=== PATIENT | male | born 1955 | race African-American/Black ===

== ENCOUNTER → 2016-10-12 | Outpatient (CLI) | payer OTHER ==
--- NOTE | ~2016-10-12 | MR165 ---
[facility] A Service of [facility] & [facility] RADIOLOGY TEXT RESULTS PATIENT: FELY KIRKLAND LOCATION: [facility] : 53 UNIT #: [id number] AGE: [address]: Racheal Conner MD SEX: M ORDER DR: [id number] [address] [id number] MR#: [id number] Acc #: [id number] NAME: FELY KIRKLAND : 1955 SEX: M STUDY DATE/TIME: 10/12/2016 16:29 UNIT: [facility] ROOM: STUDY DESCRIPTION: MR Shoulder Wo Contrast Rt Attending Physician: Racheal Conner M.D. Referring Physician: Racheal Conner M.D. Ordering Physician: Racheal Conner M.D. Primary Care Physician: Racheal Conner M.D. MRI CENTER REPORT This report is preliminary unless electronic signature is present. EXAM MRI of the right shoulder, 10/12/2016 COMPARISON No correlative studies. HISTORY Order states cervical radiculopathy, numbness of upper extremity. History sheet states right shoulder/right upper extremity numbness with limited range of motion for 3 weeks. No known injury and no shoulder surgery. FINDINGS There is moderate hypertrophic AC joint arthrosis with capsuloligamentous thickening and osteophyte formation. Coracoacromial and coracoclavicular ligaments are intact. There is moderate diffuse supraspinatus tendinosis with anterior insertional footprint supraspinatus tendon fraying and/or developing small partial undersurface tear measuring only 8.0 mm transverse x 6.0 mm AP. There is mild infraspinatus tendinosis without a tear. Teres minor tendon is intact. Subscapularis tendon is normal. There is no full-thickness rotator cuff tear. There is mild inflammation of the subacromial- subdeltoid bursa. There is abnormal signal in the biceps anchor superior labral complex from anterior to posterior with a small subcortical cyst of the superior tubercle of the glenoid. SLAP pathology is probably type 1 degenerative. The remainder of the labrum is normal. Biceps tendon is otherwise normal. Glenohumeral joint shows no effusion, chondral/osteochondral lesion, or visible loose body. There is probable subtle glenohumeral capsular inflammation in the posterior-superior quadrant. Correlate for capsulitis given reported pain and limited range of motion. [facility]. [facility] A Service of [facility] & [facility] RADIOLOGY TEXT RESULTS PATIENT: FELY KIRKLAND LOCATION: [facility] : 53 UNIT #: [id number] AGE: [address]: Racheal Conner MD SEX: M ORDER DR: There is no marrow lesion, fracture, or loose body. Muscles are normal. IMPRESSION 1. Moderate hypertrophic AC joint arthrosis. 2. Supraspinatus and infraspinatus tendinosis with anterior insertional footprint supraspinatus insertional fraying and/or developing small partial undersurface tear detailed above. There is no full-thickness rotator cuff tear. 3. Mild inflammation subacromial- subdeltoid bursa. 4. Probable SLAP pathology most likely type 1 degenerative at this age. 5. Minimal glenohumeral capsular inflammation in the posterior-superior quadrant could be seen with capsulitis. Correlate for clinical adhesive capsulitis given history of pain with limited range of motion. Dictated by... Tonja Rutledge M.D. THIS IS AN ELECTRONICALLY VERIFIED REPORT Tonja Rutledge M.D. at 10/13/2016 1:49 PM TESSA/jonh TD: 10/13/2016 10:59 JOB #: [id number] MRI CENTER REPORT Page 1 of 1
== END | disposition home or self-care (01) ==
LOC: SMRI 16:00
DX: M54.12 Radiculopathy, cervical region (principal); R20.0 Anesthesia of skin; M19.011 Primary osteoarthritis, right shoulder; M75.81 Other shoulder lesions, right shoulder; M75.51 Bursitis of right shoulder
CPT/HCPCS: 73221